=== PATIENT | male | born 1985 | race Caucasian/White ===

== ENCOUNTER 2017-04-04 13:36 | Outpatient (CLI) | payer BC ==
--- NOTE | 2017-04-04 15:12 | ULT ---
RIGHT NECK ULTRASOUND: Date: 04/04/17 HISTORY: Swelling. Mass. COMPARISON: None. TECHNIQUE: Targeted sonographic imaging of right neck is performed. FINDINGS: There is soft tissue swelling. There is a large lymph node, inferior to the mandible, with a preserve d hilum. This lymph node measures 1.7 x 0.7 cm. Additional smaller lymph nodes are noted. After revie wing the static images, real-time images were also performed by the radiologist. Static and real-time images demonstrate a swollen right submandibular gland, measuring 3.7 x 1.8 x 3.2 cm. There is edema tous change and reactive change around the swollen right submandibular gland. No evidence of a neck a bscess. IMPRESSION: Inflammatory changes involving the right submandibular gland, of uncertain etiology. The possibility of sialolith causing the inflammation cannot be excluded. Results of study discussed with Dr. Andi Castrejon on 04/04/17 at 1407 hours. CODE CR. POS: [facility]
== END 2017-04-04 13:37 | disposition home or self-care (01) ==
LOC: ULT 13:36
PROVIDERS: ATTEND Family Medicine
DX: R22.1 Localized swelling, mass and lump, neck (principal); K11.8 Other diseases of salivary glands
CPT/HCPCS: 76536